=== PATIENT | female | born 1950 | race Caucasian/White ===

== ENCOUNTER 2021-12-19 11:58 | Inpatient (IN) | payer MEDICARE, OTHER ==
[2021-12-19] MEDS ORDERED: Iopamidol-370 76% 500 ML 1 ML ONE (12:08)
[2021-12-19] MEDS ORDERED: Magnevist 469MG/ML 20 ML VIAL ONE (12:18)
[2021-12-19 12:44] LABS: #Basophils 0.1 thou/uL (0.0-0.2); #Eosinphils 0.2 thou/uL (0.0-0.7); #Lymphocytes 1.4 thou/uL (1.20-3.40); #Monocytes 0.6 thou/uL (0.11-0.59); #Neutrophils 4.9 thou/uL (1.40-6.50); %Basophils 0.8 % (0.0-1.0); %Eosinophils 2.1 % (0.0-10.0); %Lymphocytes 19.9 % (21.0-51.0); %Neutrophils 69.3 % (42.0-75.0); Hemoglobin 13.7 g/dL (12.0-16.0); Mean Corpuscular HGB CONC 31.9 g/dL (32.0-36.0); Mean Corpuscular Hemoglobin 30.4 pg (27.0-31.0); Mean Corpuscular Volume 95.3 fl (78.0-98.0); Platelet Count 187 thou/uL (130-400); RBC Distribution Width 11.4 % (11.5-14.5); Red Blood Cell (RBC) Count 4.52 mill/uL (4.20-5.40); White Blood Cell (WBC) Count 7.1 thou/uL (4.8-10.8)
[2021-12-19 12:50] LABS: PTT 22.9 sec (22.9-36.1); Prothrombin Time 13.1 sec (12.0-14.7)
[2021-12-19 12:57] LABS: ALT (SGPT) 13 U/L (8-55); AST (SGOT) 9 U/L (5-34); Albumin 3.7 g/dL (3.4-4.8); Alkaline Phosphatase 109 U/L (40-110); Anion Gap 11 mmol/L (10-20); BUN (Urea Nitrogen) 18 mg/dL (9.8-20.1); Bilirubin, Total 0.8 mg/dL (0.2-1.2); CRP (Inflammatory) Less than 0.50 mg/dL (= or < 0.5); Calc. Creatinine Clearance 0 mL/min (70-130); Calcium 8.7 mg/dL (7.8-10.44); Carbon Dioxide 25 mmol/L (23-31); Chloride 107 mmol/L (98-107); Estimated GFR 79; Globulin 2.1 g/dL (2.4-3.5); Glucose 188 mg/dL (83-110); Magnesium 1.9 mg/dL (1.6-2.6); Potassium 3.8 mmol/L (3.5-5.1); Protein, Total 5.8 g/dL (5.8-8.1); Sodium 139 mmol/L (136-145)
[2021-12-19 12:58] LABS: Acetaminophen Less than 10.0 mcg/mL (10.0-30.0); Alcohol Less than 10 mg/dL (Less than 10); CK (CPK) 57 U/L (29-168); Salicylate Less than 8.0 mg/dL (15.0-30.0)
[2021-12-19] MEDS ORDERED: Dexamethasone 4 mg/ml Vial ONE (13:05)
[2021-12-19] MEDS ORDERED: Aspirin Chewable 81 MG TAB ONE (13:05)
[2021-12-19 14:21] LABS: SARS-CoV-2 NAA Rapid Test Not Detected (NotDetected)
[2021-12-19] MEDS ORDERED: Dextrose 5% in Water 1,000 ML IV PRN (16:01)
[2021-12-19] MEDS ORDERED: Dextrose 50% Abboject 50 ML SYRINGE SLOW IVP PRN (16:01)
[2021-12-19] MEDS ORDERED: Ondansetron ODT 4 MG TAB PO PRN (16:02)
[2021-12-19] MEDS ORDERED: Acetaminophen 650 MG Suppository PR PRN (16:02)
[2021-12-19] MEDS ORDERED: Senokot S 8.6-50 MG TAB PO PRN (16:02)
[2021-12-19] MEDS ORDERED: Ondansetron PF 4 MG/2 ML Vial IVP PRN (16:02)
[2021-12-19] MEDS ORDERED: Acetaminophen 325 MG TAB PO PRN (16:02)
[2021-12-19 16:04] VITALS: BMI 43.0
[2021-12-19] MEDS: HumaLOG 300 UNITS/3 ML VIAL SC PRN ×2 (17:24→21:30)
[2021-12-19] MEDS ORDERED: Dexamethasone 4 mg/ml Vial SLOW IVP SCH (19:00)
[2021-12-19] MEDS ORDERED: Dexamethasone 4 MG in Sodium Chloride 0.9% 50 ML IVPB SCH (19:00)
[2021-12-20] MEDS: Dexamethasone 4 mg/ml Vial SLOW IVP SCH ×4 (04:46→20:47)
[2021-12-20 05:26] LABS: #Monocytes 0.4 thou/uL (0.11-0.59); #Neutrophils 6.9 thou/uL (1.40-6.50); %Eosinophils 0.1 % (0.0-10.0); %Lymphocytes 11.7 % (21.0-51.0); %Monocytes 4.5 % (0.0-10.0); %Neutrophils 83.7 % (42.0-75.0); Hemoglobin 13.2 g/dL (12.0-16.0); Mean Corpuscular HGB CONC 32.6 g/dL (32.0-36.0); Mean Corpuscular Hemoglobin 30.3 pg (27.0-31.0); Mean Corpuscular Volume 93.1 fl (78.0-98.0); Mean Platelet Volume 7.2 fL (7.4-10.4); Platelet Count 200 thou/uL (130-400); RBC Distribution Width 11.4 % (11.5-14.5); Red Blood Cell (RBC) Count 4.35 mill/uL (4.20-5.40); White Blood Cell (WBC) Count 8.2 thou/uL (4.8-10.8)
[2021-12-20 05:31] LABS: Hemoglobin A1c 7.9 % (4.0-6.0)
[2021-12-20 05:51] LABS: Anion Gap 13 mmol/L (10-20); BUN (Urea Nitrogen) 21 mg/dL (9.8-20.1); Calc. Creatinine Clearance 130 mL/min (70-130); Calcium 9.3 mg/dL (7.8-10.44); Carbon Dioxide 24 mmol/L (23-31); Cardiac Risk 3.3 (Less than 4.5); Chloride 104 mmol/L (98-107); Cholesterol 196 mg/dl (< 200 Desired); Estimated GFR 81; Glucose 257 mg/dL (83-110); HDL Cholesterol 59 mg/dL (>60 Neg Risk); LDL Cholesterol, Calculated 119 mg/dL; Potassium 3.5 mmol/L (3.5-5.1); Sodium 137 mmol/L (136-145); Triglycerides 89 mg/dL (Less than 150)
[2021-12-20] MEDS: HumaLOG 300 UNITS/3 ML VIAL SC PRN ×4 (05:57→20:43)
[2021-12-20] MEDS: Pantoprazole 40 MG VIAL IVP SCH (09:17)
[2021-12-20] MEDS: Atorvastatin Calcium 40 MG TAB PO SCH (20:43)
[2021-12-21] MEDS: Melatonin 3 MG TAB PO PRN (02:08)
[2021-12-21] MEDS: Dexamethasone 4 mg/ml Vial SLOW IVP SCH ×4 (04:06→21:57)
[2021-12-21 05:09] LABS: #Lymphocytes 0.8 thou/uL (1.20-3.40); #Monocytes 0.5 thou/uL (0.11-0.59); #Neutrophils 7.5 thou/uL (1.40-6.50); %Basophils 0.1 % (0.0-1.0); %Eosinophils 0.1 % (0.0-10.0); %Lymphocytes 9.3 % (21.0-51.0); %Monocytes 5.3 % (0.0-10.0); %Neutrophils 85.1 % (42.0-75.0); Hemoglobin 12.4 g/dL (12.0-16.0); Mean Corpuscular HGB CONC 32.8 g/dL (32.0-36.0); Mean Corpuscular Hemoglobin 30.5 pg (27.0-31.0); Mean Corpuscular Volume 93.1 fl (78.0-98.0); Mean Platelet Volume 7.3 fL (7.4-10.4); Platelet Count 180 thou/uL (130-400); RBC Distribution Width 11.4 % (11.5-14.5); Red Blood Cell (RBC) Count 4.05 mill/uL (4.20-5.40); White Blood Cell (WBC) Count 8.8 thou/uL (4.8-10.8)
[2021-12-21 05:29] LABS: Anion Gap 13 mmol/L (10-20); BUN (Urea Nitrogen) 25 mg/dL (9.8-20.1); Calc. Creatinine Clearance 132 mL/min (70-130); Calcium 9.1 mg/dL (7.8-10.44); Carbon Dioxide 22 mmol/L (23-31); Chloride 104 mmol/L (98-107); Estimated GFR 82; Glucose 326 mg/dL (83-110); Potassium 3.6 mmol/L (3.5-5.1); Sodium 135 mmol/L (136-145)
[2021-12-21] MEDS: HumaLOG 300 UNITS/3 ML VIAL SC PRN ×4 (06:30→22:02)
[2021-12-21] MEDS: Pantoprazole 40 MG VIAL IVP SCH (08:44)
[2021-12-21] MEDS: Aspirin 81 mg Enteric Coated Tablet PO SCH (08:44)
[2021-12-21] MEDS: Atorvastatin Calcium 40 MG TAB PO SCH (21:49)
[2021-12-22] MEDS: Dexamethasone 4 mg/ml Vial SLOW IVP SCH ×4 (04:25→21:34)
[2021-12-22 05:44] LABS: #Lymphocytes 0.9 thou/uL (1.20-3.40); #Monocytes 0.5 thou/uL (0.11-0.59); #Neutrophils 6.4 thou/uL (1.40-6.50); %Eosinophils 0.1 % (0.0-10.0); %Neutrophils 81.8 % (42.0-75.0); Hemoglobin 12.4 g/dL (12.0-16.0); Mean Corpuscular HGB CONC 32.9 g/dL (32.0-36.0); Mean Corpuscular Hemoglobin 30.8 pg (27.0-31.0); Mean Corpuscular Volume 93.5 fl (78.0-98.0); Mean Platelet Volume 7.5 fL (7.4-10.4); Platelet Count 180 thou/uL (130-400); RBC Distribution Width 11.4 % (11.5-14.5); Red Blood Cell (RBC) Count 4.02 mill/uL (4.20-5.40); White Blood Cell (WBC) Count 7.9 thou/uL (4.8-10.8)
[2021-12-22 06:02] LABS: Anion Gap 12 mmol/L (10-20); BUN (Urea Nitrogen) 23 mg/dL (9.8-20.1); Calc. Creatinine Clearance 135 mL/min (70-130); Calcium 9.1 mg/dL (7.8-10.44); Carbon Dioxide 25 mmol/L (23-31); Chloride 104 mmol/L (98-107); Estimated GFR 85; Glucose 283 mg/dL (83-110); Potassium 3.9 mmol/L (3.5-5.1); Sodium 137 mmol/L (136-145)
[2021-12-22] MEDS: HumaLOG 300 UNITS/3 ML VIAL SC PRN ×4 (06:21→21:30)
[2021-12-22] MEDS: Pantoprazole 40 MG VIAL IVP SCH (09:33)
[2021-12-22] MEDS: Aspirin 81 mg Enteric Coated Tablet PO SCH (09:33)
[2021-12-22] MEDS ORDERED: Dextrose 5% in Water 1,000 ML IV PRN (12:37)
[2021-12-22] MEDS ORDERED: Dextrose 50% Abboject 50 ML SYRINGE SLOW IVP PRN (12:37)
[2021-12-22] MEDS ORDERED: Insulin Glargine 30 UNITS/0.3 ML VIAL SC SCH (14:30)
[2021-12-22] MEDS: Insulin Glargine 30 UNITS/0.3 ML VIAL SC SCH (14:50)
[2021-12-22] MEDS: metFORMIN 500 MG TAB PO SCH (17:18)
[2021-12-22] MEDS: Melatonin 3 MG TAB PO PRN (21:34)
[2021-12-22] MEDS: Atorvastatin Calcium 40 MG TAB PO SCH (21:34)
[2021-12-23] MEDS: Dexamethasone 4 mg/ml Vial SLOW IVP SCH ×4 (04:39→21:06)
[2021-12-23] MEDS: HumaLOG 300 UNITS/3 ML VIAL SC PRN ×4 (06:06→21:06)
[2021-12-23] MEDS: Aspirin 81 mg Enteric Coated Tablet PO SCH (08:44)
[2021-12-23] MEDS: Losartan 25 MG TAB PO SCH (08:45)
[2021-12-23] MEDS: metFORMIN 500 MG TAB PO SCH ×2 (08:46→16:58)
[2021-12-23] MEDS: Hydrochlorothiazide 25 MG TAB PO SCH (08:47)
[2021-12-23] MEDS: Melatonin 3 MG TAB PO PRN (21:04)
[2021-12-23] MEDS: Atorvastatin Calcium 40 MG TAB PO SCH (21:04)
[2021-12-24] MEDS: Dexamethasone 4 mg/ml Vial SLOW IVP SCH ×2 (03:26→09:31)
[2021-12-24] MEDS: HumaLOG 300 UNITS/3 ML VIAL SC PRN (05:40)
[2021-12-24] MEDS: Insulin Glargine 30 UNITS/0.3 ML VIAL SC SCH (09:31)
[2021-12-24] MEDS: Aspirin 81 mg Enteric Coated Tablet PO SCH (09:32)
[2021-12-24] MEDS: metFORMIN 500 MG TAB PO SCH (09:32)
[2021-12-24] MEDS: Losartan 25 MG TAB PO SCH (09:32)
[2021-12-24] MEDS: Hydrochlorothiazide 25 MG TAB PO SCH (09:32)
[2021-12-24 13:06] VITALS: BP 119/68; TEMP 97.5
== END 2021-12-24 14:20 | disposition home or self-care (01) | DRG 64 ==
LOC: ERS 11:58 → NEURO 14:52
PROVIDERS: ADMIT Internal Medicine; ATTEND Internal Medicine
DX: I63.511 Cerebral infarction due to unspecified occlusion or stenosis of right middle cerebral artery (principal); G93.6 Cerebral edema; G81.94 Hemiplegia, unspecified affecting left nondominant side; Z68.41 Body mass index [BMI] 40.0-44.9, adult; D32.0 Benign neoplasm of cerebral meninges; Z20.822 Contact with and (suspected) exposure to COVID-19; R29.700 NIHSS score 0; I10 Essential (primary) hypertension; E78.5 Hyperlipidemia, unspecified; F41.9 Anxiety disorder, unspecified; F32.A Depression, unspecified; K21.9 Gastro-esophageal reflux disease without esophagitis; E66.01 Morbid (severe) obesity due to excess calories; T38.0X5A Adverse effect of glucocorticoids and synthetic analogues, initial encounter; E11.65 Type 2 diabetes mellitus with hyperglycemia; Z91.041 Radiographic dye allergy status; Z79.84 Long term (current) use of oral hypoglycemic drugs; Z79.899 Other long term (current) drug therapy; Z90.49 Acquired absence of other specified parts of digestive tract; Z90.710 Acquired absence of both cervix and uterus; Z98.84 Bariatric surgery status
CPT/HCPCS: 36415; 36416; 70450; 70553; 71045; 71260; 74177; 74230; 80048; 80053; 80061; 80307; 82550; 83036; 83605; 83735; 84484; 85025; 85610; 85730; 86140; 93005; 93306; 93880; 95712; 95819; 95957; 96374; A9579; C9113; J1100; J1815; Q9967; U0002

== ENCOUNTER 2021-12-26 15:31 | Emergency (ER) | payer OTHER ==
[2021-12-26 16:44] LABS: #Lymphocytes 0.9 thou/uL (1.20-3.40); #Monocytes 0.8 thou/uL (0.11-0.59); #Neutrophils 10.4 thou/uL (1.40-6.50); %Eosinophils 0.2 % (0.0-10.0); %Monocytes 6.4 % (0.0-10.0); %Neutrophils 86.3 % (42.0-75.0); Hemoglobin 14.4 g/dL (12.0-16.0); Mean Corpuscular HGB CONC 33.9 g/dL (32.0-36.0); Mean Corpuscular Hemoglobin 31.1 pg (27.0-31.0); Mean Corpuscular Volume 91.8 fl (78.0-98.0); Mean Platelet Volume 7.5 fL (7.4-10.4); Platelet Count 233 10x3/uL (130-400); RBC Distribution Width 11.5 % (11.5-14.5); Red Blood Cell (RBC) Count 4.62 mill/uL (4.20-5.40)
[2021-12-26 17:06] LABS: ALT (SGPT) 20 U/L (8-55); AST (SGOT) 11 U/L (5-34); Albumin 3.4 g/dL (3.4-4.8); Alkaline Phosphatase 128 U/L (40-110); Anion Gap 17 mmol/L (10-20); BUN (Urea Nitrogen) 35 mg/dL (9.8-20.1); Calc. Creatinine Clearance 0 mL/min (70-130); Carbon Dioxide 20 mmol/L (23-31); Chloride 99 mmol/L (98-107); Estimated GFR 71; Globulin 2.3 g/dL (2.4-3.5); Glucose 255 mg/dL (83-110); Potassium 3.9 mmol/L (3.5-5.1); Protein, Total 5.7 g/dL (5.8-8.1); Sodium 132 mmol/L (136-145)
[2021-12-26 17:57] LABS: Bilirubin Negative (Negative); Blood, Urine Negative (Negative); Clarity Clear (Clear); Glucose, Urine (Dipstick) >=1000 mg/dL (Negative); Ketone, Urine 10 mg/dL (Negative); Leukocyte Negative Leu/uL (Negative); Nitrite Negative (Negative); Protein, Urine (Dipstick) Negative (Neg-Trace); Specific Gravity, Urine 1.027 (1.002-1.036); Urobilinogen Normal mg/dL (Less than 2); pH, Urine 5.5 (5.0-9.0)
[2021-12-26 20:02] LABS: SARS-CoV-2 NAA Rapid Test Not Detected (NotDetected)
[2021-12-26] MEDS ORDERED: levETIRAcetam 500 MG/5 ML VIAL ONE (20:18)
== END 2021-12-26 21:08 | disposition short-term general hospital (02) ==
LOC: ERS 15:31
DX: R56.9 Unspecified convulsions (principal); E78.5 Hyperlipidemia, unspecified; I10 Essential (primary) hypertension; E11.42 Type 2 diabetes mellitus with diabetic polyneuropathy; Z20.822 Contact with and (suspected) exposure to COVID-19; Z79.82 Long term (current) use of aspirin; Z79.899 Other long term (current) drug therapy; Z79.84 Long term (current) use of oral hypoglycemic drugs; Z79.4 Long term (current) use of insulin; Z86.73 Personal history of transient ischemic attack (TIA), and cerebral infarction without residual deficits
CPT/HCPCS: 0240U; 70450; 80053; 81003; 82962; 84146; 85025; 93005; 94760; 96365; 99285; J1953; 36415; 36416

== ENCOUNTER 2022-04-11 09:46 | Outpatient (CLI) | payer OTHER | END 2022-04-11 09:47 | disposition home or self-care (01) | LOC: SCSCT 09:46 | PROVIDERS: ATTEND Neurological Surgery | DX: G45.9 Transient cerebral ischemic attack, unspecified (principal); G93.9 Disorder of brain, unspecified; G93.89 Other specified disorders of brain; Z98.890 Other specified postprocedural states | CPT/HCPCS: 70450 ==

== ENCOUNTER 2022-05-10 11:11 | Outpatient (CLI) | payer OTHER | END 2022-05-10 11:12 | disposition home or self-care (01) | LOC: SCSMRI 11:11 | PROVIDERS: ATTEND Neurological Surgery | DX: D49.6 Neoplasm of unspecified behavior of brain (principal); D32.0 Benign neoplasm of cerebral meninges | CPT/HCPCS: 70553; 82565 ==

== ENCOUNTER 2022-05-16 13:00 | Outpatient (CLI) | payer OTHER | END 2022-05-16 13:01 | disposition home or self-care (01) | LOC: CT 13:00 | PROVIDERS: ATTEND Neurological Surgery | DX: R29.90 Unspecified symptoms and signs involving the nervous system (principal); E04.2 Nontoxic multinodular goiter; G93.89 Other specified disorders of brain | CPT/HCPCS: 70496; 70498; 82565 ==

== ENCOUNTER 2022-06-25 13:59 | Outpatient (CLI) | payer OTHER | END 2022-06-25 14:00 | disposition home or self-care (01) | LOC: EEG 13:59 | PROVIDERS: ATTEND Psychiatry & Neurology Neurology | DX: E04.2 Nontoxic multinodular goiter (principal); R40.4 Transient alteration of awareness | CPT/HCPCS: 76536; 95816; 95957 ==

== ENCOUNTER 2024-01-26 16:38 | Inpatient (IN) | payer MEDICARE, OTHER ==
[2024-01-26 17:20] LABS: #Basophils 0.05 10x3/uL (0.0-0.2); %Basophils 0.9 % (0.0-1.0); %Lymphocytes 5.2 % (21.0-51.0); %Monocytes 9.8 % (0.0-10.0); %Neutrophils 82.9 % (42.0-75.0); Hematocrit 35.4 % (36.0-47.0); Hemoglobin 11.3 g/dL (12.0-16.0); Mean Corpuscular HGB CONC 31.9 g/dL (32.0-36.0); Mean Corpuscular Hemoglobin 25.5 pg (27.0-31.0); Mean Corpuscular Volume 79.9 fL (78.0-98.0); Mean Platelet Volume 8.9 fL (7.4-10.4); Platelet Count 178 10x3/uL (130-400); RBC Distribution Width 14.2 % (11.5-14.5); Red Blood Cell (RBC) Count 4.43 mill/uL (4.20-5.40)
[2024-01-26] MEDS ORDERED: Cefepime 2 GM VIAL ONE (17:20)
[2024-01-26] MEDS ORDERED: Sodium Chloride 0.9% 100 ML ONE (17:20)
[2024-01-26 17:35] LABS: PTT 24.1 sec (22.9-36.1); Prothrombin Time 12.9 sec (12.0-14.7)
[2024-01-26 17:37] LABS: ALT (SGPT) 10 U/L (8-55); AST (SGOT) 10 U/L (5-34); Albumin 3.4 g/dL (3.4-4.8); Alkaline Phosphatase 137 U/L (40-110); Anion Gap 12 mmol/L (10-20); BUN (Urea Nitrogen) 15 mg/dL (9.8-20.1); Bilirubin, Total 0.4 mg/dL (0.2-1.2); Calc. Creatinine Clearance 0 mL/min (70-130); Calcium 8.8 mg/dL (7.8-10.44); Carbon Dioxide 24 mmol/L (23-31); Chloride 107 mmol/L (98-107); Estimated GFR 91; Globulin 2.9 g/dL (2.4-3.5); Glucose 193 mg/dL (83-110); Potassium 3.5 mmol/L (3.5-5.1); Protein, Total 6.3 g/dL (5.8-8.1); Sodium 139 mmol/L (136-145)
[2024-01-26 17:43] LABS: Troponin I 0.015 ng/mL (< 0.028)
[2024-01-26] MEDS ORDERED: Acetaminophen 500 MG TAB ONE (17:56)
[2024-01-26] MEDS ORDERED: Dextrose 5% in Water 1,000 ML IV PRN (19:20)
[2024-01-26] MEDS ORDERED: Ondansetron ODT 4 MG TAB PO PRN (19:20)
[2024-01-26] MEDS ORDERED: Ondansetron PF 4 MG/2 ML Vial IVP PRN (19:20)
[2024-01-26] MEDS ORDERED: Glucagon 1 MG/ML KIT IM PRN (19:20)
[2024-01-26] MEDS ORDERED: Dextrose 50% Abboject 50 ML SYRINGE SLOW IVP PRN (19:20)
[2024-01-26] MEDS ORDERED: Insulin Lispro 100 UNIT/ML 10 ML VIAL SC PRN (19:20)
[2024-01-26 19:45] LABS: Magnesium 1.9 mg/dL (1.6-2.6)
[2024-01-26] MEDS ORDERED: Morphine 2 MG/ML VIAL ONE (22:14)
[2024-01-27 00:23] VITALS: BMI 35.4
[2024-01-27] MEDS: Acetaminophen 325 MG TAB PO PRN (00:53)
[2024-01-27] MEDS: Cefepime 1 GM in Sodium Chloride 0.9% 100 ML IVPB SCH (05:27)
[2024-01-27 05:51] LABS: #Basophils Less than 0.03 10x3/uL (0.0-0.2); %Basophils 0.4 % (0.0-1.0); %Eosinophils 0.9 % (0.0-10.0); %Lymphocytes 17.1 % (21.0-51.0); %Monocytes 18.6 % (0.0-10.0); %Neutrophils 62.6 % (42.0-75.0); Hematocrit 31.5 % (36.0-47.0); Hemoglobin 9.7 g/dL (12.0-16.0); Mean Corpuscular HGB CONC 30.8 g/dL (32.0-36.0); Mean Corpuscular Hemoglobin 24.9 pg (27.0-31.0); Mean Platelet Volume 9.5 fL (7.4-10.4); Platelet Count 152 10x3/uL (130-400); RBC Distribution Width 14.6 % (11.5-14.5); Red Blood Cell (RBC) Count 3.89 mill/uL (4.20-5.40)
[2024-01-27 06:00] LABS: Anion Gap 9 mmol/L (10-20); BUN (Urea Nitrogen) 14 mg/dL (9.8-20.1); Calc. Creatinine Clearance 160 mL/min (70-130); Carbon Dioxide 23 mmol/L (23-31); Chloride 110 mmol/L (98-107); Potassium 3.3 mmol/L (3.5-5.1); Sodium 139 mmol/L (136-145)
[2024-01-27 06:01] LABS: Calcium 8.2 mg/dL (7.8-10.44); Estimated GFR 97; Glucose 138 mg/dL (83-110)
[2024-01-27 06:07] LABS: Vancomycin, Random 12.6 ug/mL (See Comment)
[2024-01-27] MEDS ORDERED: Electrolyte Replacement Protocol 1 EACH FS PRN (06:28)
[2024-01-27] MEDS: Ketorolac Tromethamine 10 MG TAB PO SCH (06:49)
[2024-01-27] MEDS: Potassium Chloride 20 MEQ TAB PO SCH (06:49)
[2024-01-27] MEDS: Vancomycin (BATCH) 2.5 GM in Premix 1 BAG IVPB SCH (07:09)
[2024-01-27 07:28] LABS: Magnesium 1.9 mg/dL (1.6-2.6)
[2024-01-27] MEDS: Vancomycin 1 GM in Premix 1 BAG IVPB SCH (08:08)
[2024-01-27] MEDS: Enoxaparin 40 MG (0.4 mL) SYRINGE SC SCH (08:09)
[2024-01-27] MEDS: Magnesium 2 GM/50 ML(in water) 2 GM in Premix 1 BAG IVPB SCH (08:09)
[2024-01-27] MEDS: Pantoprazole 40 MG VIAL IVP SCH (09:24)
[2024-01-27 10:57] LABS: Hematocrit 31.3 % (36.0-47.0); Hemoglobin 9.8 g/dL (12.0-16.0); Platelet Count 141 10x3/uL (130-400)
[2024-01-27] MEDS: Gabapentin 300 MG CAP PO SCH (14:38)
[2024-01-27 15:22] LABS: Bilirubin Negative (Negative); Blood, Urine 2+ (Negative); CAUTI Indications for Culture Alt mental st,lethar; Clarity Turbid (Clear); Glucose, Urine (Dipstick) 30 mg/dL (Negative); Ketone, Urine Trace mg/dL (Negative); Leukocyte 75 Leu/uL (Negative); Nitrite Negative (Negative); Protein, Urine (Dipstick) 50 mg/dL (Neg-Trace); RBC/HPF Greater than 50 HPF (0-3); Specific Gravity, Urine 1.032 (1.002-1.036); Squamous Epithelial 0-3 HPF (0-3); Urobilinogen Normal mg/dL (Less than 2); WBC/HPF 21-50 HPF (0-3); Yeast-Budding 2+ HPF (None Seen); pH, Urine 5.5 (5.0-9.0)
[2024-01-27 15:25] LABS: Bacteria/HPF 1+ HPF (None Seen); Urine Culture Reflex Yes Yes
[2024-01-27] MEDS: Cefepime 2 GM in Sodium Chloride 0.9% 100 ML IVPB SCH (17:15)
[2024-01-27] MEDS ORDERED: Vancomycin (BATCH) 1.25 GM in Premix 1 BAG IVPB SCH (20:00)
[2024-01-27] MEDS: Fioricet 325/50/40 mg Tablet PO PRN (20:41)
[2024-01-27] MEDS: traZODone HCl 50 MG TAB PO SCH (20:41)
[2024-01-28 04:54] LABS: #Basophils 0.03 10x3/uL (0.0-0.2); %Basophils 0.8 % (0.0-1.0); %Monocytes 19.6 % (0.0-10.0); %Neutrophils 46.6 % (42.0-75.0); Hematocrit 31.9 % (36.0-47.0); Mean Corpuscular HGB CONC 31.3 g/dL (32.0-36.0); Mean Corpuscular Hemoglobin 25.6 pg (27.0-31.0); Mean Corpuscular Volume 81.6 fL (78.0-98.0); Mean Platelet Volume 9.4 fL (7.4-10.4); Platelet Count 157 10x3/uL (130-400); RBC Distribution Width 14.7 % (11.5-14.5); Red Blood Cell (RBC) Count 3.91 mill/uL (4.20-5.40)
[2024-01-28 05:18] LABS: Anion Gap 13 mmol/L (10-20); BUN (Urea Nitrogen) 12 mg/dL (9.8-20.1); Calc. Creatinine Clearance 141 mL/min (70-130); Calcium 8.1 mg/dL (7.8-10.44); Carbon Dioxide 22 mmol/L (23-31); Chloride 108 mmol/L (98-107); Estimated GFR 94; Glucose 132 mg/dL (83-110); Potassium 3.6 mmol/L (3.5-5.1); Sodium 139 mmol/L (136-145)
[2024-01-28] MEDS: Escitalopram Oxalate 20 mg Tablet PO SCH (09:18)
[2024-01-28] MEDS: Aripiprazole 10 MG TAB PO SCH (09:18)
[2024-01-28] MEDS: Pantoprazole 40 MG VIAL IVP SCH (09:19)
[2024-01-28] MEDS: Azithromycin 250 MG TAB PO SCH (17:17)
[2024-01-28] MEDS: Atorvastatin Calcium 40 MG TAB PO SCH (20:16)
[2024-01-29] MEDS: Insulin Lispro 100 UNIT/ML 10 ML VIAL SC PRN (18:16)
[2024-01-29] MEDS: Gabapentin 300 MG CAP PO SCH (20:06)
[2024-01-30 05:19] LABS: #Basophils Less than 0.03 10x3/uL (0.0-0.2); %Basophils 0.3 % (0.0-1.0); %Eosinophils 4.9 % (0.0-10.0); %Lymphocytes 32.1 % (21.0-51.0); %Monocytes 16.4 % (0.0-10.0); Hematocrit 32.3 % (36.0-47.0); Hemoglobin 10.1 g/dL (12.0-16.0); Mean Corpuscular HGB CONC 31.3 g/dL (32.0-36.0); Mean Corpuscular Hemoglobin 25.2 pg (27.0-31.0); Mean Corpuscular Volume 80.5 fL (78.0-98.0); Platelet Count 138 10x3/uL (130-400); RBC Distribution Width 14.6 % (11.5-14.5); Red Blood Cell (RBC) Count 4.01 mill/uL (4.20-5.40)
[2024-01-30 05:43] LABS: Anion Gap 12 mmol/L (10-20); BUN (Urea Nitrogen) 11 mg/dL (9.8-20.1); Calc. Creatinine Clearance 160 mL/min (70-130); Calcium 8.2 mg/dL (7.8-10.44); Carbon Dioxide 25 mmol/L (23-31); Chloride 105 mmol/L (98-107); Estimated GFR 97; Glucose 135 mg/dL (83-110); Potassium 3.6 mmol/L (3.5-5.1); Sodium 138 mmol/L (136-145)
[2024-01-30] MEDS ORDERED: Bisacodyl 5 MG TAB PO PRN (08:03)
[2024-01-30] MEDS: Pantoprazole DR 40 MG TAB PO SCH (08:46)
[2024-01-30] MEDS: Bisacodyl 5 MG TAB PO SCH (08:46)
[2024-01-31] MEDS: diphenhydrAMINE 25 MG CAP PO SCH (03:06)
[2024-02-01] MEDS: diphenhydrAMINE 50 MG/ML VIAL IVP SCH (10:27)
[2024-02-01] MEDS: diphenhydrAMINE 25 MG CAP PO SCH (10:28)
[2024-02-01 15:00] VITALS: BP 115/68; TEMP 97.8
== END 2024-02-01 15:01 | disposition swing bed (61) | DRG 865 ==
LOC: ERS 16:38 → INTOOBSV 19:32 → T4-A 19:32 → OBSVTOIN 01-27 18:46
PROVIDERS: ADMIT Student in an Organized Health Care Education/Training Program; ATTEND Internal Medicine
DX: B34.9 Viral infection, unspecified (principal); J96.01 Acute respiratory failure with hypoxia; E78.5 Hyperlipidemia, unspecified; I10 Essential (primary) hypertension; R53.81 Other malaise; D64.9 Anemia, unspecified; K21.9 Gastro-esophageal reflux disease without esophagitis; E11.42 Type 2 diabetes mellitus with diabetic polyneuropathy; E66.01 Morbid (severe) obesity due to excess calories; Z91.041 Radiographic dye allergy status; Z91.048 Other nonmedicinal substance allergy status; Z90.710 Acquired absence of both cervix and uterus; Z98.84 Bariatric surgery status; Z86.73 Personal history of transient ischemic attack (TIA), and cerebral infarction without residual deficits; Z68.35 Body mass index [BMI] 35.0-35.9, adult; Z79.899 Other long term (current) drug therapy
CPT/HCPCS: 36415; 36416; 70450; 71045; 80048; 80053; 80202; 81001; 83605; 83735; 83880; 84145; 84484; 85025; 85610; 85730; 87040; 87077; 87086; 87428; 93005; 94760; 96361; 96365; 96366; 96372; 96374; 96375; 96376; G0378; J0692; J1650; J1815; J2272; J2470; J3370; J3475